=== PATIENT | male | born 1960 | race Caucasian/White ===

== ENCOUNTER 2020-03-08 00:30 | Outpatient (CLI) | payer BC, SELFPAY | END 2020-03-08 00:31 | disposition home or self-care (01) | LOC: ANHCOVIDDT 00:30 | PROVIDERS: PCP Family Medicine; Visit Provider Internal Medicine Gastroenterology | DX: Z01.818 Encounter for other preprocedural examination (principal); Z11.59 Encounter for screening for other viral diseases | CPT/HCPCS: 87635; C9803; U0003 ==

== ENCOUNTER 2020-03-11 01:10 | Day surgery (SDC) | payer BC, SELFPAY ==
[2020-03-07 15:02] VITALS: BMI 26.8
[2020-03-11] MEDS: LACTATED RINGERS 1,000 ML 150 ML IV CONT (07:02)
[2020-03-11 07:04] VITALS: BP 110/76; PULSE 74; RESP 16; TEMP 36.7; O2SAT 95
--- NOTE | 2020-03-11 07:31 | WPDANESEPPF ---
Anes - Initial Pre Proc Eval Procedure: Operation Date: 03/11/20 08:00 Proposed Procedures p Screening Colonoscopy - Sherif Pham MD Date/Time: 03/11/20 07:31 Surgeon: Sherif Pham MD Pre Op Diagnosis: Neoplasm Screening Patient Data Age: 60 Gender: M Height: 5 ft 8 in Weight: 78.3 kg Last Vital Signs Temp 36.7 C 03/11/20 07:04 Pulse 74 03/11/20 07:04 Resp 16 03/11/20 07:04 BP 110/76 03/11/20 07:04 Pulse Ox 95 03/11/20 07:04 Allergies Allergy/AdvReac Type Severity Reaction Status Date / Time No Known Allergies Allergy Unverified 03/07/20 15:00 Home Medications Medication Instructions Recorded Confirmed Type No Home Medications 03/07/20 03/07/20 History Patient hx anesthesia problems: none Family hx anesthesia problems: none PMFSH Family History Family History Father Family history of cardiovascular disease Carcinoma of colon Mother Family history of malignant neoplasm Grandparent Family history of malignant neoplasm Sibling Family history of malignant neoplasm Social History Social History Smoking status: Never smoker Second hand tobacco smoke exposure: No Alcohol intake: never Substance use: never Additional living arrangements comments: fathered one son. 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: [employer] Gender identity (if verbalized by the patient): Male Spiritual care concerns: No (Ba Ede') Agree to blood products: Yes Anes - Eval Final PreProcedure Day of Procedure 03/11/20 07:31 Patient weight: overweight Heart: regular rate and rhythm Lungs: clear to auscultation Airway: Mallampati scale class II Neurological: alert and oriented Last oral intake: >/= 8 hours ASA classification: II Emergent: no Anesthetic plan: proceed Anesthesia type and monitoring: general GIVS and standard monitoring Informed Consent: The patient's anesthetic plan and its attendant risks and benefits were discussed with the patient/family/POA. Questions were solicited and answers provided to the satisfaction of the patient/family/POA.
--- NOTE | 2020-03-11 08:14 | PM.HPGS ---
History of Present Illness History of Present Illness Consent: Risks, benefits, and alternatives have been discussed and questions answered. Patient agrees to proceed with procedure. Chief complaint: Neoplasm Screening Narrative: Matthew Carey is a 60 year old male here for screening colonoscopy Review of Systems Constitutional: Constitutional: Denies headache(s) and Denies weakness Eyes: Eyes: Denies blurry vision ENT: Reports Normal hearing present, Denies headache(s) and Denies neck pain Cardiovascular: Cardiovascular: Denies chest pain and Denies dyspnea Respiratory: Respiratory: Denies dyspnea Gastrointestinal: Gastrointestinal: Reports no additional gastrointestinal complaints Genitourinary: Genitourinary: Denies dysuria Musculoskeletal: Musculoskeletal: Denies neck pain Integumentary/Breasts: Skin/Breast: Denies dry skin Neurologic: Reports Normal hearing present, Denies headache(s) and Denies weakness Psychiatric: Psychiatric: Denies anxiety Endocrine: Endocrine: Denies change in body appearance Hematologic/Lymphatic: Hematologic/Lymphatic: Denies easy bleeding Allergic/Immunologic: Allergic/Immunologic: Denies urticaria PMFSH Family History Family History Father Family history of cardiovascular disease Carcinoma of colon Mother Family history of malignant neoplasm Grandparent Family history of malignant neoplasm Sibling Family history of malignant neoplasm Social History Social History Smoking status: Never smoker Second hand tobacco smoke exposure: No Alcohol intake: never Substance use: never Additional living arrangements comments: fathered one son. 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: [employer] Gender identity (if verbalized by the patient): Male Spiritual care concerns: No (Gilbert Mera') Agree to blood products: Yes Meds Home Medications and Allergies Home Medications Medication Instructions Recorded Confirmed Type No Home Medications 03/07/20 03/07/20 History Allergies Allergy/AdvReac Type Severity Reaction Status Date / Time No Known Allergies Allergy Unverified 03/07/20 15:00 Vital Signs Vital Signs - 24 hr 03/11/20 07:04 Temperature 98.1 F Pulse Rate 74 Respiratory Rate 16 Blood Pressure 110/76 Pulse Oximetry 95 Exam Const: General: comfortable and no acute distress HENMT: General nose exam: Normal nares present Eyes: General: appearance normal, both eyes and all related structures Neck: Neck: no JVD Resp: Auscultation: clear to auscultation bilaterally Cardio: Rate: regular rate Rhythm: regular rhythm GI: Inspection: non-distended GI Palp: Yes Soft to palpation Skin: General skin exam: normal color Neuro: General: gait normal Speech: normal speech Extrem: General: normal to inspection Psych: Mental Status: mental status grossly normal Assessment and Plan Assessment and plan (1) Encounter for screening colonoscopy: Code(s): Z12.11 - Encounter for screening for malignant neoplasm of colon Status: Acute Assessment and Plan: will proceed with colonoscopy, never had one
[2020-03-11 08:38] VITALS: BP 107/65; PULSE 66; RESP 16; O2SAT 97
[2020-03-11 08:48] VITALS: BP 111/65; PULSE 61; RESP 16; O2SAT 98
[2020-03-11 08:58] VITALS: BP 115/74; PULSE 56; RESP 18; O2SAT 99
[2020-03-11 09:08] VITALS: BP 118/76; PULSE 58; RESP 20; O2SAT 99
== END 2020-03-11 09:15 | disposition home or self-care (01) ==
PROVIDERS: PCP Family Medicine; Visit Provider Internal Medicine Gastroenterology
PROC: 0DJD8ZZ Inspection of Lower Intestinal Tract, Via Natural or Artificial Opening Endoscopic (ICD-10-PCS; CPT 45378; principal; 2020-03-11 08:00)
DX: Z12.11 Encounter for screening for malignant neoplasm of colon (principal); D12.5 Benign neoplasm of sigmoid colon; Z80.0 Family history of malignant neoplasm of digestive organs
CPT/HCPCS: 45385; 88305; J7120